=== PATIENT | male | born 1985 | race Caucasian/White ===

== ENCOUNTER → 2019-10-18 | Outpatient (CLI) | payer OTHER ==
--- NOTE | 2019-10-18 16:31 | KCIC ---
CERVICAL SPINE WO CONTRAST DATE: 10/18/2019 3:30 PM INDICATION: LEFT CERVICAL RADICULOPATHY. 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 C/O neck pain that radiates down left arm at times. Pain across shoulders TECHNIQUE: Multiplanar multisequence magnetic resonance imaging of the cervical spine was performed without administration of intravenous contrast using the standard cervical spine protocol. COMPARISON: None. FINDINGS: Straightening of the cervical lordosis. No acute fracture. Mild multilevel degenerative disc desiccation and disc height loss. Odontoid process hemangioma. The spinal cord is normal in signal intensity. On the limited views of the cranial cavity and brain, the cerebellum and awilda have normal morphology and signal characteristics. No Chiari malformation. No soft tissue abnormality. Normal signal voids are present in the vertebral arteries. C2-3: Uncovertebral hypertrophy. Mild left neural foraminal narrowing. No spinal canal stenosis. C3-4: Uncovertebral hypertrophy. Mild left neural foraminal narrowing. No spinal canal stenosis. C4-5: Uncovertebral hypertrophy. Mild left neural foraminal narrowing. No spinal canal stenosis. C5-6: Disc osteophyte complex. Uncovertebral hypertrophy. Mild spinal canal stenosis. No neural foraminal narrowing. C6-7: No significant spinal canal stenosis or neural foraminal narrowing. C7-T1: No significant spinal canal stenosis or neural foraminal narrowing. IMPRESSION: Mild cervical spondylosis, detailed level level above. Electronically signed by: Steven Hughes MD (10/18/2019 4:28 PM) [id number]
== END | disposition home or self-care (01) ==
LOC: KCIC MRI 15:10
DX: M47.22 Other spondylosis with radiculopathy, cervical region (principal); M25.78 Osteophyte, vertebrae; M48.02 Spinal stenosis, cervical region
CPT/HCPCS: 72141